=== PATIENT | male | born 1945 | race Caucasian/White ===

== ENCOUNTER 2019-08-23 16:22 | Inpatient (IN) ==
[2019-08-23 16:56] LABS: Basophils # 0.1 K/mcL (0.0-0.2); Basophils % 0.5 %; Eosinophils # 0.1 K/mcL (0.0-0.6); Eosinophils % 0.9 %; Immature Granulocytes % 0.5 % (0-4); Lymphocytes # 1.7 K/mcL (0.6-4.6); Lymphocytes % 16.4 %; Mean Corpuscular HGB Conc 33.3 g/dL (31.6-35.5); Mean Corpuscular Hemoglobin 34.3 pg (28.0-33.3); Mean Corpuscular Volume 102.9 fL (83.0-100.0); Mean Platelet Volume 9.1 fL (9.4-12.4); Neutrophils # 7.7 K/mcL (1.6-8.9); Platelet Count 433 K/mcL (140-400); Red Blood Count 3.79 M/mcL (4.19-5.50); Red Cell Distribution Width 13.9 % (11.5-14.5); Segmented Neutrophils % 72.7 %; White Blood Count 10.6 K/mcL (4.3-11.1)
[2019-08-23 17:16] LABS: BUN/Creatinine Ratio 12 (6-26); Blood Urea Nitrogen 15 mg/dL (8-23); Calcium 9.5 mg/dL (8.6-10.3); Carbon Dioxide 30 mEq/L (23-29); Chloride 97 mEq/L (98-107); Glucose 80 mg/dL (70-105); Osmolality,Calculated 278 (280-300); Potassium 4.3 mEq/L (3.5-5.1); Sodium 134 mEq/L (136-145); eGFR For African Americans > 60 (> 60); eGFR For Non-African Americans 57 (> 60)
[2019-08-23] MEDS ORDERED: *HR* FentaNYL (PF) 100 MCG/2 ML VIAL IVP ONE (19:04)
[2019-08-23] MEDS ORDERED: Ondansetron 4 MG/2 ML VIAL IVP ONE (19:04)
[2019-08-23] MEDS ORDERED: Isovue-370 500 ML BOTTLE IVP ONE (19:05)
[2019-08-23 19:20] LABS: Alanine Aminotransferase 6 Units/L (7-52); Albumin 3.7 g/dL (3.5-5.7); Albumin/Globulin Ratio 1.2 (1.1-2.2); Alkaline Phosphatase 168 Units/L (34-104); Aspartate Amino Transferase 17 Units/L (13-39); Bilirubin,Direct 0.1 mg/dL (0.0-0.2); Bilirubin,Indirect 0.3 mg/dL (0.0-1.0); Bilirubin,Total 0.4 mg/dL (0.3-1.0); Globulin 3.1 g/dL (2.4-3.5); Total Protein 6.8 g/dL (6.4-8.9)
[2019-08-23 20:01] LABS: INR 1.1
[2019-08-23 20:03] LABS: Prothrombin Time 12.7 Seconds (9.4-12.1)
[2019-08-23] MEDS ORDERED: *HR* HYDROmorphone (PF) 1 MG/ML SYRINGE IVP STA (20:14)
[2019-08-23 20:43] LABS: Lipase 13 Units/L (11-82)
[2019-08-23 20:49] LABS: Bilirubin,Urine Negative (Negative); Blood,Urine Negative (Negative); Clarity,Urine Clear (Clear); Color,Urine Yellow (Yellow); Glucose,Urine (UA) Normal (Normal); Ketones,Urine Negative (Negative); Leukocyte Esterase,Urine Negative (Negative); Nitrite,Urine Negative (Negative); Protein,Urine Negative (Neg-Trace); Specific Gravity,Urine 1.014 (1.010-1.025); Urobilinogen,Urine Normal (Normal)
[2019-08-24] MEDS ORDERED: Naloxone 0.4 MG/ML INJ IVP PRN (00:04)
[2019-08-24] MEDS ORDERED: *HR* HYDROcodone/Acet 5/325 mg TABLET PO PRN (00:13)
[2019-08-24] MEDS ORDERED: Acetaminophen 325 MG TABLET PO PRN (00:13)
[2019-08-24] MEDS: *HR* OxyCODONE Immed Rel 5 MG TABLET PO PRN ×4 (00:48→17:07)
[2019-08-24] MEDS: Nicotine 21 MG PATCH.TD24 TD SCH ×2 (00:48→09:07)
[2019-08-24 04:07] LABS: Hematocrit 36.2 % (37.5-50.1); Hemoglobin 12.3 g/dL (12.9-16.9); Mean Corpuscular Hemoglobin 34.3 pg (28.0-33.3); Mean Corpuscular Volume 100.8 fL (83.0-100.0); Mean Platelet Volume 9.5 fL (9.4-12.4); Platelet Count 410 K/mcL (140-400); Red Blood Count 3.59 M/mcL (4.19-5.50); Red Cell Distribution Width 13.9 % (11.5-14.5); White Blood Count 9.8 K/mcL (4.3-11.1)
[2019-08-24 04:26] LABS: Alanine Aminotransferase 5 Units/L (7-52); Albumin 3.1 g/dL (3.5-5.7); Albumin/Globulin Ratio 1.1 (1.1-2.2); Alkaline Phosphatase 141 Units/L (34-104); Aspartate Amino Transferase 14 Units/L (13-39); BUN/Creatinine Ratio 12 (6-26); Bilirubin,Total 0.5 mg/dL (0.3-1.0); Blood Urea Nitrogen 14 mg/dL (8-23); Calcium 8.8 mg/dL (8.6-10.3); Carbon Dioxide 31 mEq/L (23-29); Chloride 99 mEq/L (98-107); Globulin 2.7 g/dL (2.4-3.5); Glucose 100 mg/dL (70-105); Magnesium 1.8 mg/dL (1.6-2.6); Osmolality,Calculated 279 (280-300); Phosphorous 4.3 mg/dL (2.7-4.5); Potassium 3.9 mEq/L (3.5-5.1); Sodium 134 mEq/L (136-145); Total Protein 5.8 g/dL (6.4-8.9); eGFR For African Americans > 60 (> 60); eGFR For Non-African Americans > 60 (> 60)
[2019-08-24] MEDS ORDERED: Nicotine 2 MG GUM BC PRN (07:43)
[2019-08-24] MEDS ORDERED: *HR* LORazepam 2 MG/ML VIAL IVP PRN ×3 (09:35)
[2019-08-24] MEDS: Vitamin B Complex/Vit C/Vit E 1 EACH TABLET PO SCH (10:27)
[2019-08-24] MEDS ORDERED: Ipratropium/Albuterol Neb 3 ML IH PRN (10:51)
[2019-08-24 14:19] LABS: RBC,Peritoneal Fluid < 0.002 M/mcL
[2019-08-24 14:26] LABS: Appearance of Peritoneal Fl HAZY (Clear)
[2019-08-24] MEDS: tiZANidine 4 MG TABLET PO SCH ×2 (14:31→22:11)
[2019-08-24] MEDS: diazePAM 2 MG TABLET PO PRN (19:58)
[2019-08-24] MEDS: Sennosides/Docusate Sodium TABLET PO PRN (22:11)
[2019-08-25] MEDS: *HR* OxyCODONE Immed Rel 5 MG TABLET PO PRN ×4 (00:12→13:25)
[2019-08-25 05:05] LABS: Hemoglobin 11.9 g/dL (12.9-16.9); Mean Corpuscular HGB Conc 33.1 g/dL (31.6-35.5); Mean Corpuscular Hemoglobin 34.5 pg (28.0-33.3); Mean Corpuscular Volume 104.3 fL (83.0-100.0); Mean Platelet Volume 9.6 fL (9.4-12.4); Platelet Count 386 K/mcL (140-400); Red Blood Count 3.45 M/mcL (4.19-5.50); Red Cell Distribution Width 13.7 % (11.5-14.5); White Blood Count 9.7 K/mcL (4.3-11.1)
[2019-08-25 05:25] LABS: BUN/Creatinine Ratio 11 (6-26); Blood Urea Nitrogen 12 mg/dL (8-23); Calcium 8.9 mg/dL (8.6-10.3); Carbon Dioxide 33 mEq/L (23-29); Chloride 96 mEq/L (98-107); Glucose 109 mg/dL (70-105); Osmolality,Calculated 278 (280-300); Potassium 4.3 mEq/L (3.5-5.1); Sodium 134 mEq/L (136-145); eGFR For African Americans > 60 (> 60); eGFR For Non-African Americans > 60 (> 60)
[2019-08-25] MEDS: Tiotropium 18 MCG inhalation IH SCH (08:04)
[2019-08-25] MEDS: Nicotine 21 MG PATCH.TD24 TD SCH (08:53)
[2019-08-25] MEDS: Furosemide 20 MG TABLET PO SCH (09:07)
[2019-08-25] MEDS: Vitamin B Complex/Vit C/Vit E 1 EACH TABLET PO SCH (09:07)
[2019-08-25] MEDS: Mirtazapine 15 MG TABLET PO SCH (09:08)
[2019-08-25] MEDS: tiZANidine 4 MG TABLET PO SCH ×3 (09:17→20:58)
[2019-08-25] MEDS ORDERED: *HR* FentaNYL (PF) 100 MCG/2 ML VIAL IVP ONE (11:26)
[2019-08-25] MEDS ORDERED: *HR* Midazolam HCl 2 MG/2 ML VIAL IVP ONE (11:26)
[2019-08-25] MEDS ORDERED: 0.9 % Sodium Chloride 500 ML ONE (11:27)
[2019-08-25] MEDS ORDERED: *HR* FentaNYL (PF) 100 MCG/2 ML VIAL ONE (11:38)
[2019-08-25] MEDS ORDERED: *HR* Midazolam HCl 2 MG/2 ML VIAL ONE (11:38)
[2019-08-25] MEDS ORDERED: *HR* OxyCODONE Immed Rel 15 MG TABLET PO PRN (13:31)
[2019-08-25] MEDS: Ringers Solution, Lactated 1,000 ML IVC SCH (14:00)
[2019-08-25] MEDS: *HR* OxyCODONE Immed Rel 15 MG TABLET PO SCH ×2 (17:40→20:56)
[2019-08-25] MEDS ORDERED: traMADol 50 MG TABLET PO ONE (20:10)
[2019-08-25] MEDS: Gabapentin 400 MG CAPSULE PO SCH (20:58)
[2019-08-25] MEDS: Sennosides/Docusate Sodium TABLET PO PRN (22:52)
[2019-08-26] MEDS: *HR* OxyCODONE Immed Rel 15 MG TABLET PO SCH ×6 (00:25→20:56)
[2019-08-26 04:33] LABS: Hematocrit 34.4 % (37.5-50.1); Hemoglobin 11.5 g/dL (12.9-16.9); Mean Corpuscular HGB Conc 33.4 g/dL (31.6-35.5); Mean Corpuscular Hemoglobin 34.1 pg (28.0-33.3); Mean Corpuscular Volume 102.1 fL (83.0-100.0); Mean Platelet Volume 9.8 fL (9.4-12.4); Platelet Count 345 K/mcL (140-400); Red Blood Count 3.37 M/mcL (4.19-5.50); Red Cell Distribution Width 13.5 % (11.5-14.5); White Blood Count 11.2 K/mcL (4.3-11.1)
[2019-08-26 04:51] LABS: BUN/Creatinine Ratio 13 (6-26); Blood Urea Nitrogen 10 mg/dL (8-23); Calcium 8.4 mg/dL (8.6-10.3); Carbon Dioxide 28 mEq/L (23-29); Chloride 97 mEq/L (98-107); Glucose 88 mg/dL (70-105); Osmolality,Calculated 272 (280-300); Potassium 4.3 mEq/L (3.5-5.1); Sodium 132 mEq/L (136-145); eGFR For African Americans > 60 (> 60); eGFR For Non-African Americans > 60 (> 60)
[2019-08-26] MEDS: diazePAM 2 MG TABLET PO PRN (09:37)
[2019-08-26] MEDS: Nicotine 21 MG PATCH.TD24 TD SCH (10:35)
[2019-08-26] MEDS: Tiotropium 18 MCG inhalation IH SCH (10:37)
[2019-08-26] MEDS: Folic Acid 1 MG TABLET PO SCH (10:39)
[2019-08-26] MEDS: Mirtazapine 15 MG TABLET PO SCH (10:39)
[2019-08-26] MEDS: Furosemide 20 MG TABLET PO SCH (10:39)
[2019-08-26] MEDS: Vitamin B Complex/Vit C/Vit E 1 EACH TABLET PO SCH (10:41)
[2019-08-26] MEDS: tiZANidine 4 MG TABLET PO SCH ×3 (10:41→20:56)
[2019-08-26] MEDS: Gabapentin 400 MG CAPSULE PO SCH ×3 (10:41→20:55)
[2019-08-26] MEDS: Aspirin Enteric Coated 81 MG Tablet PO SCH (10:41)
[2019-08-27] MEDS: *HR* OxyCODONE Immed Rel 15 MG TABLET PO SCH ×7 (00:02→23:34)
[2019-08-27 02:37] LABS: Fluid Source for Albumin ASCITES
[2019-08-27] MEDS ORDERED: 0.9 % Sodium Chloride 500 ML IVC ONE (04:01)
[2019-08-27] MEDS: Tiotropium 18 MCG inhalation IH SCH (08:09)
[2019-08-27] MEDS: Sennosides/Docusate Sodium TABLET PO PRN (09:25)
[2019-08-27] MEDS: Mirtazapine 15 MG TABLET PO SCH (09:25)
[2019-08-27] MEDS: Folic Acid 1 MG TABLET PO SCH (09:25)
[2019-08-27] MEDS: Furosemide 20 MG TABLET PO SCH (09:25)
[2019-08-27] MEDS: tiZANidine 4 MG TABLET PO SCH ×3 (09:25→20:53)
[2019-08-27] MEDS: Gabapentin 400 MG CAPSULE PO SCH ×3 (09:26→20:53)
[2019-08-27] MEDS: Nicotine 21 MG PATCH.TD24 TD SCH (09:26)
[2019-08-27] MEDS: Vitamin B Complex/Vit C/Vit E 1 EACH TABLET PO SCH (09:26)
[2019-08-27] MEDS: Aspirin Enteric Coated 81 MG Tablet PO SCH (09:27)
[2019-08-27] MEDS: Sennosides/Docusate Sodium TABLET PO SCH (20:53)
[2019-08-27] MEDS ORDERED: Acetaminophen IV 1,000 MG/100 ML INFUS..BTL IVPB ONE (21:57)
[2019-08-28] MEDS: *HR* OxyCODONE Immed Rel 15 MG TABLET PO SCH ×3 (03:34→12:28)
[2019-08-28 05:43] LABS: Hematocrit 32.3 % (37.5-50.1); Hemoglobin 10.7 g/dL (12.9-16.9); Mean Corpuscular HGB Conc 33.1 g/dL (31.6-35.5); Mean Corpuscular Hemoglobin 33.5 pg (28.0-33.3); Mean Corpuscular Volume 101.3 fL (83.0-100.0); Mean Platelet Volume 9.7 fL (9.4-12.4); Platelet Count 346 K/mcL (140-400); Red Blood Count 3.19 M/mcL (4.19-5.50); Red Cell Distribution Width 13.4 % (11.5-14.5); White Blood Count 10.3 K/mcL (4.3-11.1)
[2019-08-28 06:05] LABS: BUN/Creatinine Ratio 15 (6-26); Blood Urea Nitrogen 15 mg/dL (8-23); Calcium 8.6 mg/dL (8.6-10.3); Carbon Dioxide 29 mEq/L (23-29); Chloride 95 mEq/L (98-107); Glucose 112 mg/dL (70-105); Osmolality,Calculated 274 (280-300); Potassium 4.1 mEq/L (3.5-5.1); Sodium 131 mEq/L (136-145); eGFR For African Americans > 60 (> 60); eGFR For Non-African Americans > 60 (> 60)
[2019-08-28] MEDS: Tiotropium 18 MCG inhalation IH SCH (08:14)
[2019-08-28] MEDS: Sennosides/Docusate Sodium TABLET PO SCH ×2 (08:46→20:42)
[2019-08-28] MEDS: Aspirin Enteric Coated 81 MG Tablet PO SCH (08:47)
[2019-08-28] MEDS: Gabapentin 400 MG CAPSULE PO SCH ×3 (08:47→20:38)
[2019-08-28] MEDS: tiZANidine 4 MG TABLET PO SCH ×3 (08:47→20:39)
[2019-08-28] MEDS: Mirtazapine 15 MG TABLET PO SCH (08:47)
[2019-08-28] MEDS: Vitamin B Complex/Vit C/Vit E 1 EACH TABLET PO SCH (08:47)
[2019-08-28] MEDS: Furosemide 20 MG TABLET PO SCH (08:47)
[2019-08-28] MEDS: Nicotine 21 MG PATCH.TD24 TD SCH (08:48)
[2019-08-28] MEDS: Folic Acid 1 MG TABLET PO SCH (08:48)
[2019-08-28] MEDS ORDERED: *HR* OxyCODONE Immed Rel 5 MG TABLET PO ONE (12:36)
[2019-08-28] MEDS: *HR* OxyCODONE Immed Rel 5 MG TABLET PO SCH ×2 (16:26→20:38)
[2019-08-28] MEDS ORDERED: *HR* OxyCODONE ER (12 HR) 10 MG TABLET PO SCH (18:00)
[2019-08-28] MEDS: Ringers Solution, Lactated 1,000 ML IVC SCH ×2 (19:28→20:43)
[2019-08-28] MEDS ORDERED: Ketorolac 30 MG/ML VIAL IVP ONE (20:12)
[2019-08-28] MEDS ORDERED: Acetaminophen IV 1,000 MG/100 ML INFUS..BTL IVPB ONE (20:16)
[2019-08-29 04:22] LABS: Hematocrit 31.7 % (37.5-50.1); Hemoglobin 10.5 g/dL (12.9-16.9); Mean Corpuscular HGB Conc 33.1 g/dL (31.6-35.5); Mean Corpuscular Hemoglobin 34.2 pg (28.0-33.3); Mean Corpuscular Volume 103.3 fL (83.0-100.0); Mean Platelet Volume 9.8 fL (9.4-12.4); Platelet Count 340 K/mcL (140-400); Red Blood Count 3.07 M/mcL (4.19-5.50); Red Cell Distribution Width 13.4 % (11.5-14.5); White Blood Count 13.5 K/mcL (4.3-11.1)
[2019-08-29 04:39] LABS: BUN/Creatinine Ratio 14 (6-26); Blood Urea Nitrogen 17 mg/dL (8-23); Calcium 8.3 mg/dL (8.6-10.3); Carbon Dioxide 29 mEq/L (23-29); Chloride 91 mEq/L (98-107); Glucose 95 mg/dL (70-105); Osmolality,Calculated 267 (280-300); Potassium 3.6 mEq/L (3.5-5.1); Sodium 128 mEq/L (136-145); eGFR For African Americans > 60 (> 60); eGFR For Non-African Americans 59 (> 60)
[2019-08-29] MEDS: Ipratropium/Albuterol Neb 3 ML IH SCH ×5 (04:44→22:55)
[2019-08-29] MEDS: Folic Acid 1 MG TABLET PO SCH (09:30)
[2019-08-29] MEDS: Furosemide 20 MG TABLET PO SCH (09:58)
[2019-08-29] MEDS: Gabapentin 400 MG CAPSULE PO SCH ×3 (10:03→21:29)
[2019-08-29] MEDS: Mirtazapine 15 MG TABLET PO SCH (10:03)
[2019-08-29] MEDS: Vitamin B Complex/Vit C/Vit E 1 EACH TABLET PO SCH (10:04)
[2019-08-29] MEDS: Sennosides/Docusate Sodium TABLET PO SCH ×2 (10:04→21:29)
[2019-08-29] MEDS: tiZANidine 4 MG TABLET PO SCH ×3 (10:04→21:29)
[2019-08-29] MEDS ORDERED: *HR* OxyCODONE Immed Rel 5 MG TABLET PO PRN (11:48)
[2019-08-29] MEDS: Nicotine 21 MG PATCH.TD24 TD SCH (12:37)
[2019-08-29] MEDS: *HR* OxyCODONE Immed Rel 5 MG TABLET PO PRN ×2 (17:21→21:29)
[2019-08-29] MEDS: Ringers Solution, Lactated 1,000 ML IVC SCH (21:44)
[2019-08-30] MEDS: *HR* OxyCODONE Immed Rel 5 MG TABLET PO PRN ×5 (01:08→23:58)
[2019-08-30] MEDS: Ipratropium/Albuterol Neb 3 ML IH SCH ×4 (03:57→22:46)
[2019-08-30 04:20] LABS: Hematocrit 31.3 % (37.5-50.1); Hemoglobin 10.4 g/dL (12.9-16.9); Mean Corpuscular HGB Conc 33.2 g/dL (31.6-35.5); Mean Corpuscular Hemoglobin 34.2 pg (28.0-33.3); Mean Platelet Volume 9.8 fL (9.4-12.4); Platelet Count 345 K/mcL (140-400); Red Blood Count 3.04 M/mcL (4.19-5.50); Red Cell Distribution Width 13.5 % (11.5-14.5); White Blood Count 12.2 K/mcL (4.3-11.1)
[2019-08-30 04:43] LABS: BUN/Creatinine Ratio 13 (6-26); Blood Urea Nitrogen 13 mg/dL (8-23); Calcium 8.2 mg/dL (8.6-10.3); Carbon Dioxide 29 mEq/L (23-29); Chloride 96 mEq/L (98-107); Glucose 108 mg/dL (70-105); Osmolality,Calculated 273 (280-300); Potassium 4.1 mEq/L (3.5-5.1); Sodium 131 mEq/L (136-145); eGFR For African Americans > 60 (> 60); eGFR For Non-African Americans > 60 (> 60)
[2019-08-30] MEDS ORDERED: traMADol 50 MG TABLET PO PRN (05:13)
[2019-08-30] MEDS: Gabapentin 400 MG CAPSULE PO SCH ×3 (08:42→21:36)
[2019-08-30] MEDS: Nicotine 21 MG PATCH.TD24 TD SCH (08:43)
[2019-08-30] MEDS: Vitamin B Complex/Vit C/Vit E 1 EACH TABLET PO SCH (08:43)
[2019-08-30] MEDS: Sennosides/Docusate Sodium TABLET PO SCH ×2 (08:43→21:36)
[2019-08-30] MEDS: Folic Acid 1 MG TABLET PO SCH (08:43)
[2019-08-30] MEDS: tiZANidine 4 MG TABLET PO SCH ×3 (08:43→21:40)
[2019-08-30] MEDS: Mirtazapine 15 MG TABLET PO SCH (08:43)
[2019-08-30] MEDS: Furosemide 20 MG TABLET PO SCH (08:45)
[2019-08-30] MEDS: Ondansetron 4 MG/2 ML VIAL IVP PRN ×2 (12:39→21:40)
[2019-08-31 02:16] LABS: Hematocrit 33.3 % (37.5-50.1); Hemoglobin 10.9 g/dL (12.9-16.9); Mean Corpuscular HGB Conc 32.7 g/dL (31.6-35.5); Mean Corpuscular Hemoglobin 33.9 pg (28.0-33.3); Mean Corpuscular Volume 103.4 fL (83.0-100.0); Platelet Count 388 K/mcL (140-400); Red Blood Count 3.22 M/mcL (4.19-5.50); Red Cell Distribution Width 13.6 % (11.5-14.5); White Blood Count 12.1 K/mcL (4.3-11.1)
[2019-08-31 02:35] LABS: BUN/Creatinine Ratio 17 (6-26); Blood Urea Nitrogen 13 mg/dL (8-23); Calcium 8.6 mg/dL (8.6-10.3); Carbon Dioxide 29 mEq/L (23-29); Chloride 94 mEq/L (98-107); Glucose 98 mg/dL (70-105); Osmolality,Calculated 272 (280-300); Sodium 131 mEq/L (136-145); eGFR For African Americans > 60 (> 60); eGFR For Non-African Americans > 60 (> 60)
[2019-08-31] MEDS: Ringers Solution, Lactated 1,000 ML IVC SCH (02:51)
[2019-08-31] MEDS: Ipratropium/Albuterol Neb 3 ML IH SCH ×3 (03:48→16:04)
[2019-08-31] MEDS: diazePAM 2 MG TABLET PO PRN (04:24)
[2019-08-31] MEDS: Gabapentin 400 MG CAPSULE PO SCH ×2 (10:06→14:50)
[2019-08-31] MEDS: Folic Acid 1 MG TABLET PO SCH (10:06)
[2019-08-31] MEDS: Mirtazapine 15 MG TABLET PO SCH (10:06)
[2019-08-31] MEDS: Sennosides/Docusate Sodium TABLET PO SCH (10:06)
[2019-08-31] MEDS: Nicotine 21 MG PATCH.TD24 TD SCH (10:06)
[2019-08-31] MEDS: Vitamin B Complex/Vit C/Vit E 1 EACH TABLET PO SCH (10:06)
[2019-08-31] MEDS: tiZANidine 4 MG TABLET PO SCH ×2 (10:06→14:50)
[2019-08-31] MEDS: Furosemide 20 MG TABLET PO SCH (10:10)
[2019-08-31] MEDS: *HR* OxyCODONE Immed Rel 5 MG TABLET PO PRN (11:36)
[2019-08-31 16:48] VITALS: BP 88/60
[2019-08-31] MEDS ORDERED: Ketorolac 15 MG/ML VIAL IVP ONE (17:11)
[2019-08-31] MEDS ORDERED: Lidocaine -MPF 4% 5 ML AMPUL INFILT ONE (17:49)
[2019-08-31] MEDS ORDERED: *HR* Rocuronium Bromide 50 MG/5 ML VIAL IVC ONE (17:49)
[2019-08-31] MEDS ORDERED: *HR* Propofol 500 MG/50 ML BOTTLE IVC ONE (17:49)
[2019-08-31] MEDS ORDERED: *HR* Phenylephrine 10 MG/ML VIAL IVC ONE (17:49)
== END 2019-08-31 17:50 | disposition hospice, home (50) | DRG 375 ==
LOC: 3NENU 16:22 → EMEROOARM 16:22 → SUATTDRO 21:13 → 3NENU 22:05
PROVIDERS: ADMIT Internal Medicine; ATTEND Internal Medicine
PROC: IRLYMPH (2019-08-25 09:00)
PROC: ENDOEUS (2019-08-25 18:10)